=== PATIENT | male | born 1980 | race Caucasian/White ===

== ENCOUNTER 2017-09-25 12:30 | Emergency (ER) | payer OTHER ==
--- NOTE | 2017-09-25 12:59 | ED GENERAL ADULT ---
History of Present Illness General Chief Complaint: ETOH/Drug Related Complaint Stated Complaint: BIBA WITHDRAWAL Source: patient, family Exam Limitations: no limitations Vital Signs & Intake/Output Vital Signs & Intake/Output Vital Signs Date Time Temp Pulse Resp B/P B/P Pulse O2 O2 Flow FiO2 Mean Ox Delivery Rate 09/251 98.9 85 18 138/58 96 Room Air 09/25 1957 98.7 87 18 144/68 96 Room Air 09/25 1612 98.2 62 18 124/67 99 Room Air 09/25 1451 Room Air Room Air 09/25 1340 97.0 50 156/83 09/25 1257 97.0 50 156/83 92 Room Air ED Intake and Output 09/26 0000 09/25 1200 Intake Total 1000 Output Total Balance 1000 Intake, IV 1000 Patient 150 lb Weight Weight Estimated Measurement Method Allergies Coded Allergies: No Known Allergies (09/25/17) Reconcile Medications Naltrexone HCl 50 MG TABLET 1 TAB PO DAILY ADDICTION (Reported) Triage Nurses Notes Reviewed? yes Onset: Abrupt Duration: hour(s): Timing: recent history HPI: 09/25/17 1:30 PM 37-year-old male presents to the emergency department for opiate withdrawal. The patient had been using opiates. He took naltrexone and went into withdrawal , he is now complaining of abdominal cramping and vomiting. (Ravi Harrison DO) Past History Travel History Traveled to [place] past 21 day No Medical History Any Pertinent Medical History? see below for history Surgical History Surgical History: non-contributory Psychosocial History What is your primary language [place]ijani Family History Hx Contributory? No (Ravi Harrison DO) Review of Systems Review of Systems Constitutional: Reports: diaphoresis. Denies: fever. EENTM: Reports: nasal congestion. Respiratory: Denies: short of breath. Cardiovascular: Denies: chest pain. GI: Reports: abdominal pain, vomiting. Genitourinary: Reports: no symptoms. Musculoskeletal: Reports: muscle pain. Skin: Reports: see HPI. Neurological/Psychological: Reports: headache. Hematologic/Endocrine: Reports: no symptoms. Immunologic/Allergic: Reports: no symptoms. (Ravi Harrison DO) Physical Exam Physical Exam General Appearance: alert, awake, anxious, moderate distress Head: atraumatic, normal appearance Eyes: Bilateral: normal appearance, PERRL, EOMI. Ears, Nose, Throat: normal pharynx, normal ENT inspection Neck: normal inspection, supple, full range of motion Respiratory: normal breath sounds, no respiratory distress Cardiovascular: tachycardia Peripheral Pulses: 4+ radial (R), 4+ radial (L) Gastrointestinal: soft, non-tender Back: normal range of motion Extremities: no edema Neurologic/Psych: awake, alert, oriented x 3 Skin: diaphoresis Core Measures ACS in differential dx? No CVA/TIA Diagnosis: No Sepsis Present: No Sepsis Focused Exam Completed? No (Ravi Harrison DO) Progress Differential Diagnoses I considered the following diagnoses in my evaluation of the patient: [Opiate withdrawal, opiate dependency] Plan of Care: Orders Procedure Date/time Status COMPREHENSIVE METABOLIC PANEL 09/25 1303 Complete CBC WITHOUT DIFFERENTIAL 09/25 1303 Complete URINE DRUG SCREEN FOR ER ONLY 09/25 1241 Complete Laboratory Tests 09/25/17 1329: Anion Gap 16, Estimated GFR > 60, BUN/Creatinine Ratio 15.6, Glucose 104 H, Calcium 10.0, Total Bilirubin 0.7, AST 40, ALT 43, Alkaline Phosphatase 64, Total Protein 8.0, Albumin 4.8, Globulin 3.2, Albumin/Globulin Ratio 1.5, CBC w Diff NO MAN DIFF REQ, RBC 5.30, MCV 84.6, MCH 28.6, MCHC 33.9, RDW 12.7, MPV 8.5 , Gran % 75.7 H, Lymphocytes % 14.0 L, Monocytes % 6.3, Eosinophils % 3.9, Basophils % 0.1, Absolute Granulocytes 7.3 H, Absolute Lymphocytes 1.3, Absolute Monocytes 0.6, Absolute Eosinophils 0.4, Absolute Basophils 0 09/25/17 1242: Urine Opiates Screen > 4000.00 H, Methadone Screen < 40, Barbiturate Screen < 60, Ur Phencyclidine Scrn < 6.00, Amphetamines Screen 161, U Benzodiazepines Scrn < 85, Urine Cocaine Screen < 50, Urine Cannabis Screen < 5.00 Initial ED EKG: none (Ravi Harrison DO) Departure Departure Disposition: STILL A PATIENT Condition: Stable Clinical Impression Primary Impression: Opiate withdrawal Referrals: Paola Gonzales MD Departure Forms: Customer Survey General Discharge Information Comments The patient was treated with IV fluids, clonidine, gabapentin, Zofran. He was signed out to Dr. Falcon at 7 PM, for reevaluation. (Ravi Harrison DO) Departure Comments 09/25/17, 21:56.... pt awake and alert... discussed options at length... he will discuss options (highwatch vs discharge vs other) with family. 09/25/17, 22:25... pt discussed at length and wishes (Ezekiel THOMAS,Bruce Adame) Critical Care Note Critical Care Note Critical Care Time: non-applicable (Ravi Harrison DO)
[2017-09-25 13:41] LABS: ABSOLUTE BASOPHIL COUNT 0 /CUMM (0.0-0.2); ABSOLUTE EOSINOPHIL COUNT 0.4 /CUMM (0.0-0.7); ABSOLUTE GRANULOCYTE CT 7.3 /CUMM (1.4-6.5); ABSOLUTE LYMPH COUNT 1.3 /CUMM (1.2-3.4); ABSOLUTE MONOCYTE COUNT 0.6 /CUMM (0.10-0.60); BASOPHIL % 0.1 % (0.0-2.0); EOSINOPHIL % 3.9 % (0-5); GRANULOCYTE % 75.7 % (42.2-75.2); HEMATOCRIT 44.8 % (42-52); MEAN CORPUSCULAR HGB 28.6 PG (27.0-31.0); MEAN CORPUSCULAR HGB CONC 33.9 G/DL (33.0-37.0); MEAN CORPUSCULAR VOLUME 84.6 FL (80.0-94.0); MEAN PLATELET VOLUME 8.5 FL (7.4-10.4); PLATELET COUNT 216 /CUMM (130-400); RBC DISTRIBUTION WIDTH 12.7 % (11.5-14.5); WHITE BLOOD CELL COUNT 9.6 /CUMM (4.8-10.8)
[2017-09-25] MEDS ORDERED: NALTREXONE HCL50 M1 PO (14:47)
[2017-09-25 22:31] VITALS: BP 138/58
== END 2017-09-25 22:43 ==
LOC: ERH 12:30
PROVIDERS: Emergency Medicine
DX: F11.23 Opioid dependence with withdrawal (principal); R10.9 Unspecified abdominal pain; R11.10 Vomiting, unspecified
CPT/HCPCS: 80307; 96374; J2405